=== PATIENT | male | born 1950 | race Caucasian/White ===

== ENCOUNTER 2016-04-10 12:47 | Emergency (ER) | payer OTHER, MEDICARE, BC ==
--- NOTE | 2016-04-10 13:06 | ER Document Report ---
ED Medical Screen (RME) - General Stated Complaint: BLOOD IN STOOL Notes: 66 yo male c/o rectal bleeding since last night. bright red bleeding in stool and from rectum. + hx/o diverticulitis, hemorrhoids, DM and HTN. + increased frequency of stooling today, no abdominal pain. no fever. PCM VIRGILIO Edwards TRAVEL OUTSIDE OF THE [place] IN LAST 30 DAYS: No - Related Data Allergies/Adverse Reactions: No Known Allergies Allergy (Unverified 03/21/14 13:21) Past Medical History - Past Medical History Cardiac Medical History: Reports: Hx Hypercholesterolemia, Hx Hypertension Endocrine Medical History: Reports: Hx Diabetes Mellitus Type 2 - Immunizations Hx Diphtheria, Pertussis, Tetanus Vaccination: Yes Physical Exam - Vital signs Vitals: Temp Pulse Resp BP Pulse Ox 97.3 F 105 H 20 113/68 97 04/10/16 13:00 04/10/16 13:00 04/10/16 13:00 04/10/16 13:00 04/10/16 13:00 Course - Vital Signs Vital signs: Temp Pulse Resp BP Pulse Ox 97.3 F 105 H 20 113/68 97 04/10/16 13:00 04/10/16 13:00 04/10/16 13:00 04/10/16 13:00 04/10/16 13:00
[2016-04-10 13:29] LABS: ABSOLUTE EOSINOPHILS # (AUTO) 0.2 10^3/uL (0.0-0.6); ABSOLUTE LYMPHOCYTES (AUTO) 1.1 10^3/uL (0.5-4.7); ABSOLUTE NEUT (AUTO) 9.5 10^3/uL (1.7-8.2); BASOPHILS % (AUTO) 0.4 % (0-2); EOSINOPHILS % (AUTO) 1.8 % (0-6); HEMATOCRIT 39.3 % (37.9-51.0); HGB HCT DIFFERENCE -0.3; LYMPHOCYTES % (AUTO) 9.5 % (13-45); MEAN CORPUSCULAR HEMOGLOBIN 28.4 pg (27.0-33.4); MEAN CORPUSCULAR VOLUME 86 fl (80-97); MONOCYTES % (AUTO) 8.5 % (3-13); RED BLOOD COUNT 4.56 10^6/uL (4.35-5.55); RED CELL DISTRIBUTION WIDTH 13.6 % (11.5-14.0); SEGMENTED NEUTROPHILS % (AUTO) 79.8 % (42-78); WHITE BLOOD COUNT 11.9 10^3/uL (4.0-10.5)
[2016-04-10 13:43] LABS: ALANINE AMINOTRANSFERASE 26 U/L (21-72); ALKALINE PHOSPHATASE 91 U/L (38-126); ANION GAP 13 (5-19); ASPARTATE AMINO TRANSFERASE 17 U/L (17-59); BILIRUBIN,TOTAL 0.5 mg/dL (0.2-1.3); BLOOD UREA NITROGEN 21 mg/dL (7-20); CALCIUM 9.9 mg/dL (8.4-10.2); CARBON DIOXIDE 26 mmol/L (22-30); CHLORIDE 102 mmol/L (98-107); CREATININE RESULT 1.02 mg/dL (0.52-1.25); GLUCOSE 204 mg/dL (75-110); POTASSIUM 4.5 mmol/L (3.6-5.0); SODIUM 140.7 mmol/L (137-145); TOTAL PROTEIN 6.4 g/dL (6.3-8.2)
--- NOTE | 2016-04-10 17:45 | ER Document Report ---
ED GI Bleed / Rectal Pain - General Chief Complaint: Rectal Bleeding Stated Complaint: BLOOD IN STOOL Notes: Patient is a 66-year-old male who presents emergency Department complaining of lower GI bleeding. Patient states that this started last evening but has gotten significantly worse with course of today. Patient states that today he' s had 8 movements that are mainly been blood clots. Patient denies any abdominal pain or rectal pain. Denies any nausea, vomiting, chest pain. Admits to history of diverticulitis, hemorrhoids, diabetes and hypertension. States he had a colonoscopy about 2 years ago for regular staging that I found benign polyps and evidence of diverticulosis. This was with Dr. Tamara duarte in [place], [place]. Denies any lethargy or weakness. Past surgical history significant for hernia repair, social history significant for rare alcohol use Allergies to codeine PCP is Dr. Purvis in [place] TRAVEL OUTSIDE OF THE [place] IN LAST 30 DAYS: No - Related Data Allergies/Adverse Reactions: No Known Allergies Allergy (Verified 04/10/16 13:02) Past Medical History - Social History Smoking Status: Never Smoker Chew tobacco use (# tins/day): No Frequency of alcohol use: None Drug Abuse: None Family History: CAD Patient has suicidal ideation: No Patient has homicidal ideation: No - Past Medical History Cardiac Medical History: Reports: Hx Hypercholesterolemia, Hx Hypertension Endocrine Medical History: Reports: Hx Diabetes Mellitus Type 2 Renal/ Medical History: Denies: Hx Peritoneal Dialysis - Immunizations Hx Diphtheria, Pertussis, Tetanus Vaccination: Yes Review of Systems - Review of Systems Constitutional: No symptoms reported EENT: No symptoms reported Cardiovascular: No symptoms reported Respiratory: No symptoms reported Gastrointestinal: See HPI Genitourinary: No symptoms reported Male Genitourinary: No symptoms reported Musculoskeletal: No symptoms reported Skin: No symptoms reported Hematologic/Lymphatic: No symptoms reported Neurological/Psychological: No symptoms reported Physical Exam - Vital signs Vitals: Temp Pulse Resp BP Pulse Ox 97.3 F 105 H 20 113/68 97 04/10/16 13:00 04/10/16 13:00 04/10/16 13:00 04/10/16 13:00 04/10/16 13:00 - Notes Notes: PHYSICAL EXAM GENERAL: Alert, interacts well. HEAD: Normocephalic, atraumatic. EYES: Pupils equal, round, and reactive to light. Extraocular movements intact. ENT: Oral mucosa moist, tongue midline. NECK: Full range of motion. Supple. Trachea midline. LUNGS: Clear to auscultation bilaterally, no wheezes, rales, or rhonchi. No respiratory distress. HEART: Regular rate and rhythm. No murmurs, gallops, or rubs. ABDOMEN: Soft, nondistended, nontender. No guarding, rebound, or rigidity.. Bowel sounds present in all 4 quadrants. RECTAL: No evidence of jocelynn blood within the rectal vault, no internal or external hemorrhoids. No palpable mass EXTREMITIES: Moves all 4 extremities spontaneously. No edema, radial and dorsalis pedis pulses 2/4 bilaterally. No cyanosis. NEUROLOGICAL: Alert and oriented x3. Normal speech. PSYCH: Normal affect, normal mood. SKIN: Warm, dry, normal turgor. No rashes or lesions noted. Course - Re-evaluation Re-evalutation: 04/10/16 17:42 Patient is a 66-year-old male who presents with concern for lower GI bleed. He is currently hemodynamically stable, no acute distress and afebrile. CBC does not reveal any evidence of acute blood loss anemia. Patient is tolerating by mouth, alert and oriented. At this time we do not have gastroenterology on- call. We will set patient up with Dr. Barrett and send a consult call to Dr. Quintero. Discussed plan with patient to be evaluated by a director international either tomorrow or Friday inability to return either here or to [place] emergency department if his symptoms persist. Patient and family agreeable with this plan Per [facility] protocol and guidelines, this case was discussed with supervising physician Dr. Benedicto Ivan prior to discharge - Vital Signs Vital signs: Temp Pulse Resp BP Pulse Ox 97.3 F 105 H 20 113/68 97 04/10/16 13:00 04/10/16 13:00 04/10/16 13:00 04/10/16 13:00 04/10/16 13:00 - Laboratory Result Diagrams: 04/10/16 13:10 04/10/16 13:10 Laboratory results interpreted by me: 04/10/16 04/10/16 13:10 13:10 WBC 11.9 H Hgb 13.0 L Seg Neutrophils % 79.8 H Lymphocytes % 9.5 L Absolute Neutrophils 9.5 H BUN 21 H Glucose 204 H Discharge - Discharge Clinical Impression: Lower GI bleed Condition: Good Disposition: HOME, SELF-CARE Instructions: Rectal Bleeding, Unclear Cause ([facility]) Additional Instructions: Please be sure to call Dr. Najera's office as well as Dr. Barrett and Dr. Quintero' s office to establish follow-up to be seen either or Friday of this week. If you're not able to be seen this week please be sure to return to the emergency department either here or [place] if your symptoms persist Referrals: AVERY HOPKINS MD [Primary Care Provider] - Follow up tomorrow ROEL QUINTERO MD [ACTIVE STAFF] - Follow up tomorrow
[2016-04-10 17:59] VITALS: BP 113/61
== END 2016-04-10 17:57 | disposition home or self-care (01) ==
LOC: ER 12:47
DX: K92.2 Gastrointestinal hemorrhage, unspecified (principal); E78.00 Pure hypercholesterolemia, unspecified; I10 Essential (primary) hypertension; E11.9 Type 2 diabetes mellitus without complications; Z88.6 Allergy status to analgesic agent
CPT/HCPCS: 36415; 80053; 82272; 85025; 99283

== ENCOUNTER → 2016-04-25 | Outpatient (CLI) | payer MEDICARE, BC | LOC: RAD 08:51 | PROVIDERS: ATTEND Internal Medicine | DX: K92.2 Gastrointestinal hemorrhage, unspecified (principal) | CPT/HCPCS: 74250 ==

== ENCOUNTER 2016-08-22 10:41 | Day surgery (SDC) | payer MEDICARE, BC ==
[~2016-08-22 10:41] MED LIST: KETOROLAC TROMETHAMINE 0.45% 4 DROP/0.4 ML DROPERETTE OD PRN; MIDAZOLAM 2 MG/2 ML INJ ONE
[2016-08-22] MEDS ORDERED: PHENYLEPHRINE/KETOROLAC 1%-0.3% 4 ML VIAL ONE (10:55)
[2016-08-22] MEDS ORDERED: LIDOCAINE 1% INJ-PF (10 MG/ML) 30 ML SDV ONE (10:55)
[2016-08-22] MEDS ORDERED: CHONDR SU A NA/HYALUR INTRAOC KIT (SURGICARE) ONE (10:55)
[2016-08-22] MEDS ORDERED: KETOROLAC TROMETHAMINE 0.45% 4 DROP/0.4 ML DROPERETTE ONE (11:01)
[2016-08-22] MEDS ORDERED: TETRACAINE HCL 0.5% OPH SOLN 2 ML ONE (11:02)
[2016-08-22] MEDS: TROPICAMIDE 1% OPH SOLN 3 ML OD PRN ×3 (11:05→11:25)
[2016-08-22] MEDS: CYCLOPENTOLATE 0.2%/PHENYLEPHRINE 1% OPH SOLN 2 ML OD PRN ×3 (11:05→11:25)
[2016-08-22] MEDS: BESIFLOXACIN HCL 0.6% OPH SUSP 5 ML BOTTLE OD PRN ×3 (11:06→12:07)
[2016-08-22] MEDS: TETRACAINE HCL 0.5% OPH SOLN 2 ML OD PRN ×3 (11:07→11:44)
--- NOTE | 2016-08-22 12:53 | [facility] OPERATIVE REPORT E ---
[facility] Operative Report NAME: NETTA PATINO AGE: 66Y DATE OF SURGERY: 08/22/2016 ROOM: PREOPERATIVE DIAGNOSIS: CATARACT, RIGHT EYE. POSTOPERATIVE DIAGNOSIS: CATARACT, RIGHT EYE. OPERATION: Cataract extraction with intraocular lens implant of the right eye. SURGEON: PATRICK ANTONIO M.D. ANESTHESIA: Topical. PROCEDURE: After obtaining appropriate consent, the patient's right eye was prepped and draped in sterile fashion as well as the surgeon in a sterile manner and cataract surgery was started. First a paracentesis blade was used to make a small side-port incision. Viscoelastic was used to inflate the anterior chamber. Next a 2.4 mm incision was made with the paracentesis blade. A continuous capsulorrhexis incision was made using a cystotome and Utrata forceps. Following this hydrodissection was carried out to make the lens fully loose and mobile and it was rotated 90 degrees. Following this, a akboro-mik-vlbhhml technique was used to phacoemulsify the lens. The remaining cortex was removed with irrigation/aspiration. Provisc was instilled into the capsular bag to inflate the bag. A SN60WF, 15.5 diopter lens was placed. The remaining viscoelastic material was removed with irrigation/aspiration. Following this, a 10-0 nylon suture was used to close the incision and it was found to be watertight. Vigamox was instilled in the eye and a protective shield was placed over the eye. The patient returned to the postoperative recovery in stable condition. DICTATING PHYSICIAN: PATRICK ANTONIO M.D. [id number] PHY#: [id number] ID: [id number] JOB#: [id number] ACCT: [id number] cc:PATRICK ANTONIO M.D. > MTDZandra
--- NOTE | 2016-08-22 12:54 | [facility] DISCHARGE SUMMARY E ---
[facility] Discharge Summary NAME: NETTA PATINO AGE: 66Y ADMITTED: 08/22/2016 DISCHARGED: 08/22/2016 HOSPITAL COURSE: This is a 66-year-old male who underwent cataract extraction of the right eye, diagnosed as cataract right eye. He underwent surgery because he avoids driving at night secondary to having glare from headlights. He should be on a regular diet, no bending at his waist, no heavy lifting. He should use his Besivance, Ilevro, and Durezol at 3 p.m. and 8 p.m. and sleep with a rigid shield, and I will see him for his 1 day postoperative tomorrow. DICTATING PHYSICIAN: PATRICK ANTONIO M.D. [id number] PHY#: [id number] ID: [id number] JOB#: [id number] ACCT: [id number] cc:PATRICK ANTONIO M.D. >
== END 2016-08-22 12:48 | disposition home or self-care (01) ==
LOC: SC 10:41
PROVIDERS: ATTEND Internal Medicine
PROC: 08RJ3JZ Replacement of Right Lens with Synthetic Substitute, Percutaneous Approach (ICD-10-PCS; principal; 2016-08-22 12:00)
DX: H25.813 Combined forms of age-related cataract, bilateral (principal); H57.03 Miosis; H35.371 Puckering of macula, right eye; H04.123 Dry eye syndrome of bilateral lacrimal glands; E11.9 Type 2 diabetes mellitus without complications; I10 Essential (primary) hypertension; K21.9 Gastro-esophageal reflux disease without esophagitis; I49.9 Cardiac arrhythmia, unspecified; G62.9 Polyneuropathy, unspecified; E78.00 Pure hypercholesterolemia, unspecified; Z87.891 Personal history of nicotine dependence; Z88.5 Allergy status to narcotic agent; Z79.82 Long term (current) use of aspirin; Z79.899 Other long term (current) drug therapy; Z79.84 Long term (current) use of oral hypoglycemic drugs
CPT/HCPCS: 66984; 82962; V2632; J2250; J3490 ×2; A9270; C9447; 142

== ENCOUNTER 2017-07-05 22:56 | Emergency (ER) | payer MEDICARE, BC ==
[2017-07-05] MEDS ORDERED: TRANEXAMIC ACID INJ/PF 1,000 MG/10 ML SDV IV ONE (23:02)
[2017-07-05] MEDS ORDERED: NORMAL SALINE 500 ML IV ONE (23:03)
--- NOTE | 2017-07-05 23:07 | ER Document Report ---
ED General - General Chief Complaint: Passed Out Prior to Arrival Stated Complaint: SYCOPE Time Seen by Provider: 07/05/17 23:02 Notes: Patient is a 67-year-old male who presents with complaint of syncopal episode on the toilet. This occurred when he started having blood coming from his rectum. He initially said he did not have chest pain. His showed up and said that he was having some sharp shooting chest pain. Patient does admit that he had little bit of sharp shooting chest pain but says has since resolved. Called the ambulance. When the ambulance set him up in a syncopal episode. On the way here he passed several episodes of blood clots from his rectum. He does have a history of diverticulitis. No recent abdominal surgeries. Last colonoscopy was just over a year ago. No fevers. Some nausea. No vomiting of blood. Patient currently says he feels a bit better after receiving 500 mL's of normal saline from the paramedics. He also received 8 mg of Zofran. He is not on any blood thinners. TRAVEL OUTSIDE OF THE U[place] IN LAST 30 DAYS: No - Related Data Allergies/Adverse Reactions: codeine Adverse Reaction (Verified 08/22/16 11:41) Nausea Past Medical History - Social History Smoking Status: Never Smoker Frequency of alcohol use: None Drug Abuse: None Family History: CAD - Past Medical History Cardiac Medical History: Reports: Hx Hypercholesterolemia, Hx Hypertension Denies: Hx Heart Attack Pulmonary Medical History: Denies: Hx Asthma Neurological Medical History: Denies: Hx Cerebrovascular Accident, Hx Seizures Endocrine Medical History: Reports: Hx Diabetes Mellitus Type 2 Renal/ Medical History: Denies: Hx Peritoneal Dialysis GI Medical History: Reports: Hx Hiatal Hernia, Hx Ulcer. Denies: Hx Hepatitis Infectious Medical History: Denies: Hx Hepatitis Past Surgical History: Denies: Hx Open Heart Surgery, Hx Pacemaker - Immunizations Hx Diphtheria, Pertussis, Tetanus Vaccination: Yes Review of Systems - Review of Systems Notes: My Normal Review Basic REVIEW OF SYSTEMS: CONSTITUTIONAL : Denies fever, chills, or sweats. Denies recent illness. EENT: Denies eye, ear, throat, or mouth pain or symptoms. Denies nasal or sinus congestion. CARDIOVASCULAR: Some chest pain which has since resolved. RESPIRATORY: Denies cough, cold, or chest congestion. Denies shortness of breath, difficulty breathing, or wheezing. GASTROINTESTINAL: Suprapubic and left lower quadrant abdominal pain.. Denies nausea, vomiting, or diarrhea. Rectal bleeding GENITOURINARY: Denies difficulty urinating, painful urination, burning, frequency, or blood in urine. MUSCULOSKELETAL: Denies neck or back pain or joint pain or swelling. SKIN: Denies rash or skin lesions. NEUROLOGICAL: Syncope. denies headache. Denies weakness or paralysis or loss of use of either side. Denies problems with gait or speech. Denies sensory or motor loss. ALL OTHER SYSTEMS REVIEWED AND NEGATIVE. Physical Exam - Vital signs Vitals: Temp 97.9 F 07/05/17 22:59 - Notes Notes: General Appearance: Well nourished, alert, cooperative, no acute distress, mild obvious discomfort. Mildly diaphoretic Vitals: reviewed, See vital signs table. Head: no swelling or tenderness to the head Eyes: PERRL, EOMI, Conjuctiva clear Mouth: No decreasd moisture Neck: Supple, no neck tenderness, No thyromegaly Lungs: No wheezing, No rales, No rhonci, No accessory muscle use, good air exchange bilaterally. Heart: Normal rate, Regular rythm, No murmur, no rub Abdomen: Normal BS, soft, No rigidity, mild to moderate left lower quadrant abdominal tenderness to palpation, No guarding, no rebound, Extremities: strength 5/5 in all extremities, good pulses in all extremities, no swelling or tenderness in the extremities, no edema. Skin: warm, dry, appropriate color, no rash Neuro: speech clear, oriented x 3, normal affect, responds appropriately to questions. Course - Re-evaluation Re-evalutation: 07/06/17 02:14 I did evaluate the patient. He does not have any active bleeding ongoing at this time from the rectal area. Still has the same dried blood over the rectal area with no new gross blood. Patient prefers to at least try to stay on so if they be willing to accept them even though we do not have GI. I did speak with the hospitalist, Dr. Martin, who he recommends the patient be transferred because we do not have GI coverage in case the patient does have recurrent bleeding. I did explain this to the patient he is agreeable to be transferred. Patient's primary care doctor is Low Rodriguez and his GI physician is Bety Mcdonald. Both of them are at [facility] and therefore I have called [facility] and spoke with Dr. Grey who agrees except the patient for transfer. I have ordered repeat CBC to see where his hemoglobin has trended 2. That is currently pending. Dictation of this chart was performed using voice recognition software; therefore, there may be some unintended grammatical errors. 07/06/17 06:36 Time of transfer patient did not have any further bleeding. His vital signs were stable. He was medically stable for transport. Patient was transported to [facility] where they have GI coverage. Dictation of this chart was performed using voice recognition software; therefore, there may be some unintended grammatical errors. - Vital Signs Vital signs: Temp Pulse Resp BP Pulse Ox 97.9 F 87 19 114/69 93 07/06/17 03:33 07/06/17 02:07 07/06/17 03:32 07/06/17 03:32 07/06/17 03:31 - Laboratory Result Diagrams: 07/06/17 02:07 07/05/17 23:00 Laboratory results interpreted by me: 07/05/17 07/05/17 07/06/17 23:00 23:00 02:07 WBC 11.1 H RBC 3.21 L 3.23 L Hgb 9.6 L 9.4 L Hct 28.5 L 28.3 L RDW 14.2 H Seg Neutrophils % 88.1 H Lymphocytes % 5.9 L Absolute Neutrophils 9.8 H BUN 30 H Glucose 204 H Total Bilirubin 0.1 L AST 11 L Total Protein 5.1 L Albumin 2.8 L - EKG Interpretation by Me Additional EKG results interpreted by me: 07/05/17 23:16 EKG is reviewed and interpreted by me. EKG shows sinus rhythm with a rate of [address] segment elevation or depression. No ischemic appearing T-wave inversions. No acute changes in comparison to his old EKG from July 24, 2015. VT interval, QRS duration, QTc intervals are within normal range. Discharge - Discharge Clinical Impression: Rectal bleeding Syncope Qualifiers: Syncope type: unspecified Qualified Code(s): R55 - Syncope and collapse Anemia Qualifiers: Anemia type: unspecified type Qualified Code(s): D64.9 - Anemia, unspecified Condition: Stable Disposition: [facility]
[2017-07-05 23:15] LABS: ABSOLUTE BASOPHILS # (AUTO) 0.1 10^3/uL (0.0-0.2); ABSOLUTE EOSINOPHILS # (AUTO) 0.3 10^3/uL (0.0-0.6); ABSOLUTE LYMPHOCYTES (AUTO) 1.8 10^3/uL (0.5-4.7); BASOPHILS % (AUTO) 0.8 % (0-2); EOSINOPHILS % (AUTO) 2.5 % (0-6); HEMATOCRIT 28.5 % (37.9-51.0); HEMOGLOBIN 9.6 g/dL (13.5-17.0); LYMPHOCYTES % (AUTO) 17.8 % (13-45); MEAN CORPUSCULAR HEMOGLOBIN 29.9 pg (27.0-33.4); MEAN CORPUSCULAR HGB CONC 33.7 g/dL (32.0-36.0); MEAN CORPUSCULAR VOLUME 89 fl (80-97); MONOCYTES % (AUTO) 9.6 % (3-13); PLATELET COUNT 262 10^3/uL (150-450); RED BLOOD COUNT 3.21 10^6/uL (4.35-5.55); RED CELL DISTRIBUTION WIDTH 13.8 % (11.5-14.0); SEGMENTED NEUTROPHILS % (AUTO) 69.3 % (42-78); TOTAL CELLS COUNTED % (AUTO) 100 %; WHITE BLOOD COUNT 10.1 10^3/uL (4.0-10.5)
[2017-07-05 23:23] LABS: INTERNATIONAL RATION (INR) 0.92; PROTHROMBIN TIME 12.8 SEC (11.4-15.4)
[2017-07-05 23:24] LABS: PARTIAL THROMBOPLASTIN TIME 30.5 SEC (23.5-35.8)
[2017-07-05] MEDS ORDERED: PROMETHAZINE HCL INJ 25 MG/1 ML VIAL IM ONE (23:39)
[2017-07-05] MEDS ORDERED: PROMETHAZINE HCL INJ 25 MG/1 ML VIAL ONE (23:40)
[2017-07-05 23:56] LABS: ALANINE AMINOTRANSFERASE 24 U/L (21-72); ALBUMIN 2.8 g/dL (3.5-5.0); ALKALINE PHOSPHATASE 71 U/L (38-126); ANION GAP 5 (5-19); ASPARTATE AMINO TRANSFERASE 11 U/L (17-59); BLOOD UREA NITROGEN 30 mg/dL (7-20); CALCIUM 8.4 mg/dL (8.4-10.2); CARBON DIOXIDE 28 mmol/L (22-30); CHLORIDE 107 mmol/L (98-107); GLUCOSE 204 mg/dL (75-110); POTASSIUM 3.9 mmol/L (3.6-5.0); TOTAL PROTEIN 5.1 g/dL (6.3-8.2)
[2017-07-06] LABS: BILIRUBIN,TOTAL 0.1 mg/dL (0.2-1.3)
[2017-07-06 00:01] LABS: BILIRUBIN,DIRECT 0.1 mg/dL (0.0-0.4)
--- NOTE | 2017-07-06 00:18 | RADIOLOGY REPORT (SQ) ---
EXAM DESCRIPTION: CLINICAL HISTORY: chest pain COMPARISON: 07/23/2015 FINDINGS: Single view of the chest is submitted. 5 mm nodule in the right lateral lung is unchanged. Cardiac silhouette is normal. No focal parenchymal or pleural disease. No acute bony abnormality. There is no significant pulmonary vascular engorgement. IMPRESSION: No evidence of acute cardiopulmonary disease.
--- NOTE | 2017-07-06 01:20 | RADIOLOGY REPORT (SQ) ---
EXAM DESCRIPTION: CT ABDOMEN PELVIS WITH IV CONTRAST CLINICAL HISTORY: 67 years Male, rectal bleeding, abdominal pain Comparison: None. Technique: IV contrast. Coronal and sagittal reformat. This exam was performed according to our departmental dose-optimization program, which includes automated exposure control, adjustment of the mA and/or kV according to patient size and/or use of iterative reconstruction technique.[facility]: Dose Right [facility]: CareDose [facility]: Dose Right [facility]: Teradose 4D [facility]: [employer] LIMITATIONS: None. Findings: Mild bowel wall thickening with mild fat inflammation of 3 cm ileal segment and the right paracentral abdomen, image 33 of series [address] Normal CT appearance of the rectum and perirectal space. Mild low-attenuation bowel wall thickening of the right colon suggest prior infectious or inflammatory insult. Mild perinephric fat stranding. Likely benign bilateral small renal cysts. Normal appendix. Mild disc desiccation. Inferior thorax, liver, gallbladder, pancreas, spleen, adrenals, renal system, pelvic organs, lymphatics, vasculature, and musculoskeleton appear otherwise unremarkable. IMPRESSION: Mild focal ileitis. Differential includes infectious, inflammatory, and neoplastic etiologies.
[2017-07-06 02:16] LABS: ABSOLUTE LYMPHOCYTES (AUTO) 0.7 10^3/uL (0.5-4.7); ABSOLUTE MONOCYTES (AUTO) 0.6 10^3/uL (0.1-1.4); ABSOLUTE NEUT (AUTO) 9.8 10^3/uL (1.7-8.2); BASOPHILS % (AUTO) 0.2 % (0-2); EOSINOPHILS % (AUTO) 0.3 % (0-6); HEMATOCRIT 28.3 % (37.9-51.0); HEMOGLOBIN 9.4 g/dL (13.5-17.0); LYMPHOCYTES % (AUTO) 5.9 % (13-45); MEAN CORPUSCULAR HEMOGLOBIN 29.2 pg (27.0-33.4); MEAN CORPUSCULAR HGB CONC 33.3 g/dL (32.0-36.0); MEAN CORPUSCULAR VOLUME 88 fl (80-97); MONOCYTES % (AUTO) 5.5 % (3-13); PLATELET COUNT 233 10^3/uL (150-450); RED BLOOD COUNT 3.23 10^6/uL (4.35-5.55); RED CELL DISTRIBUTION WIDTH 14.2 % (11.5-14.0); SEGMENTED NEUTROPHILS % (AUTO) 88.1 % (42-78); TOTAL CELLS COUNTED % (AUTO) 100 %; WHITE BLOOD COUNT 11.1 10^3/uL (4.0-10.5)
[2017-07-06 03:33] VITALS: BP 114/69
--- NOTE | 2017-07-06 08:42 | EKG REPORT ---
SEVERITY:- OTHERWISE NORMAL ECG - SINUS RHYTHM BORDERLINE RIGHT AXIS DEVIATION NONSPECIFIC ST-T CHANGES LATERAL LEADS, UNCHANGED FROM 07/24/15 EKG : Confirmed by: Johnnie Olsen MD 06-Jul-2017 08:41:58
== END 2017-07-06 03:43 | disposition short-term general hospital (02) ==
LOC: ER 22:56
DX: K62.5 Hemorrhage of anus and rectum (principal); R55 Syncope and collapse; D64.9 Anemia, unspecified; R11.0 Nausea; R10.32 Left lower quadrant pain; I10 Essential (primary) hypertension; R07.9 Chest pain, unspecified; E11.9 Type 2 diabetes mellitus without complications; Z87.19 Personal history of other diseases of the digestive system
CPT/HCPCS: 93005; 99285; 96372; 96365; 86900; 86901; 36415; 86850; 85025; 85610; 85730; 80053; 84484; 71045; 74178; 93010; J2550; J7040; J3490

== ENCOUNTER → 2017-08-12 | Outpatient (CLI) | payer MEDICARE, BC ==
--- NOTE | 2017-08-12 15:59 | RADIOLOGY REPORT (SQ) ---
EXAM DESCRIPTION: MRI HEAD COMBO COMPLETED DATE/TIME: 08/12/2017 1:21 pm REASON FOR STUDY: DIPLOPIA H53.2 DIPLOPIA COMPARISON: None. TECHNIQUE: Multiplanar imaging includes noncontrasted T1, T2, FLAIR, diffusion with ADC map and post gadolinium contrast T1 sequences. Images stored on PACS. Additional thin section axial and coronal T2 fat sat, T1 precontrast, T1 post contrasted images throu gh the orbits were obtained. CONTRAST TYPE AND DOSE: 15 mL Prohance. RENAL FUNCTION: GFR > 60. LIMITATIONS: None. FINDINGS: ANATOMY: No developmental anomalies. Normal vascular flow voids. Pituitary fossa normal. Suprasellar cistern, optic chiasm unremarkable CSF SPACES: Normal in size and contour. No hemorrhage. CEREBRUM: Sulci and gyri normal in size and contour. Single focus of increased flair/ t2 white matte r signal along the right posterior temporal lobe axial image 16 likely a tiny focus of small vessel i schemic change, chronic. No evidence of hemorrhage, mass, or extraaxial fluid collection. No abnorma l enhancement post contrast. POSTERIOR FOSSA: No signal alteration. No hemorrhage. No edema, masses, or mass effect. Internal silvina tory canals, cerebellopontine angles, mastoids normal. No enhancing lesions. No abnormal enhancement post contrast. DIFFUSION IMAGING: Negative for acute or subacute infarction. ORBITS: Post right cataract surgery. Globes are otherwise unremarkable. Normal optic nerves. No in tra or extraconal orbital masses or abnormal enhancement. Normal extraocular muscles. Normal lacrim al glands. Optic chiasm, optic radiation unremarkable. PARANASAL SINUSES: No fluid levels. Mucosa normal. OTHER: No other significant finding. IMPRESSION: ESSENTIALLY NORMAL MRI OF THE BRAIN AND ORBITS WITHOUT AND WITH INTRAVENOUS GADOLINIUM C ONTRAST. EVIDENCE OF ACUTE STROKE: NO. TECHNICAL DOCUMENTATION: JOB ID: [id number] [employer]- All Rights Reserved Reading location - IP/workstation name: [email or web address]
== END ==
LOC: RAD 12:03
PROVIDERS: ATTEND Internal Medicine
DX: H53.2 Diplopia (principal)
CPT/HCPCS: 82565; 70553; A9576

== ENCOUNTER 2019-01-25 17:51 | Emergency (ER) | payer MEDICARE, BC ==
[2019-01-25] MEDS ORDERED: ONDANSETRON 4 MG TAB.RAPDIS PO ONE (20:23)
[2019-01-25] MEDS ORDERED: OXYCODONE-ACETAMINOPHEN 5-325 MG TABLET PO ONE (20:23)
--- NOTE | 2019-01-25 20:26 | ER Document Report ---
ED Medical Screen (RME) - General Chief Complaint: Cat Bite Stated Complaint: ANIMAL BITE Time Seen by Provider: 01/25/19 20:19 Primary Care Provider: PATRICK ANTONIO MD [Primary Care Provider] - Follow up as needed Mode of Arrival: Ambulatory Information source: Patient Notes: This 68-year-old diabetic presents to the emergency department with a cat bite to his right hand. Reports it was an old cat and the cat was frightened. He is pretty sure the shots are up-to-date. Reports he went to see his primary care provider today because his hand is red hurts warm and red streaks going up his forearm. He denies fever vomiting diarrhea. Reports his primary care provider told him he had a high white count and he needed IV antibiotics. I have greeted and performed a rapid initial assessment of this patient. A comprehensive ED assessment and evaluation of the patient, analysis of test results and completion of the medical decision making process will be conducted by additional ED providers. Dictation of this chart was performed using voice recognition software; therefore, there may be some unintended grammatical errors. TRAVEL OUTSIDE OF THE [place] IN LAST 30 DAYS: No - Related Data Allergies/Adverse Reactions: codeine Adverse Reaction (Verified 08/22/16 11:41) Nausea Past Medical History - Past Medical History Cardiac Medical History: Reports: Hx Hypercholesterolemia, Hx Hypertension Denies: Hx Heart Attack Pulmonary Medical History: Denies: Hx Asthma Neurological Medical History: Denies: Hx Cerebrovascular Accident, Hx Seizures Endocrine Medical History: Reports: Hx Diabetes Mellitus Type 2 Renal/ Medical History: Denies: Hx Peritoneal Dialysis GI Medical History: Reports: Hx Hiatal Hernia, Hx Ulcer. Denies: Hx Hepatitis Infectious Medical History: Denies: Hx Hepatitis Past Surgical History: Denies: Hx Open Heart Surgery, Hx Pacemaker - Immunizations Hx Diphtheria, Pertussis, Tetanus Vaccination: Yes Physical Exam - Vital signs Vitals: Temp Pulse Resp BP Pulse Ox 98.4 F 85 16 125/61 94 01/25/19 18:38 01/25/19 18:38 01/25/19 18:38 01/25/19 18:38 01/25/19 18:38 Course - Vital Signs Vital signs: Temp Pulse Resp BP Pulse Ox 98.4 F 85 16 125/61 94 01/25/19 20:20 01/25/19 18:38 01/25/19 20:20 01/25/19 18:38 01/25/19 20:20 Doctor's Discharge - Discharge Referrals: PATRICK ANTONOI MD [Primary Care Provider] - Follow up as needed
--- NOTE | 2019-01-25 21:03 | RADIOLOGY REPORT (SQ) ---
EXAM DESCRIPTION: XR HAND 3 OR MORE VIEWS COMPLETED DATE/TME: 01/25/2019 20:24 CLINICAL HISTORY: 68 years, Male, cat bite COMPARISON: None. NUMBER OF VIEWS: Three TECHNIQUE: Frontal, oblique, and lateral radiographs were obtained LIMITATIONS: None. FINDINGS: Multifocal degenerative changes are evident about the hand/wrist, particularly about the first CMC joint as well as the first through third MCP joints. Remaining visualized osseous structures appear normal without acute fracture or dislocation. No significant soft tissue swelling. No retained radiopaque foreign body. IMPRESSION: Multifocal degenerative changes, as above. No underlying acute osseous anomaly. copyright 2010 [employer]- All Rights Reserved
[2019-01-25 21:08] LABS: ABSOLUTE BASOPHILS # (AUTO) 0.1 10^3/uL (0.0-0.2); ABSOLUTE EOSINOPHILS # (AUTO) 0.1 10^3/uL (0.0-0.6); ABSOLUTE LYMPHOCYTES (AUTO) 1.1 10^3/uL (0.5-4.7); ABSOLUTE NEUT (AUTO) 9.8 10^3/uL (1.7-8.2); BASOPHILS % (AUTO) 0.5 % (0-2); EOSINOPHILS % (AUTO) 1.2 % (0-6); HEMATOCRIT 42.8 % (37.9-51.0); HEMOGLOBIN 14.1 g/dL (13.5-17.0); LYMPHOCYTES % (AUTO) 9.4 % (13-45); MEAN CORPUSCULAR HEMOGLOBIN 28.3 pg (27.0-33.4); MEAN CORPUSCULAR HGB CONC 32.9 g/dL (32.0-36.0); MEAN CORPUSCULAR VOLUME 86 fl (80-97); MONOCYTES % (AUTO) 8.3 % (3-13); PLATELET COUNT 258 10^3/uL (150-450); RED BLOOD COUNT 4.97 10^6/uL (4.35-5.55); RED CELL DISTRIBUTION WIDTH 14.6 % (11.5-14.0); SEGMENTED NEUTROPHILS % (AUTO) 80.6 % (42-78); TOTAL CELLS COUNTED % (AUTO) 100 %; WHITE BLOOD COUNT 12.1 10^3/uL (4.0-10.5)
[2019-01-25 21:27] LABS: ALBUMIN 4.2 g/dL (3.5-5.0); ALKALINE PHOSPHATASE 113 U/L (38-126); ANION GAP 14 (5-19); ASPARTATE AMINO TRANSFERASE 16 U/L (17-59); BILIRUBIN,DIRECT 0.2 mg/dL (0.0-0.4); BILIRUBIN,TOTAL 0.4 mg/dL (0.2-1.3); BLOOD UREA NITROGEN 20 mg/dL (7-20); CALCIUM 9.8 mg/dL (8.4-10.2); CARBON DIOXIDE 26 mmol/L (22-30); CHLORIDE 102 mmol/L (98-107); GLUCOSE 215 mg/dL (75-110); TOTAL PROTEIN 6.9 g/dL (6.3-8.2)
[2019-01-26] MEDS ORDERED: AMPICILLIN SOD/SULBACTAM 3 GM VIAL IV ONE (03:57)
--- NOTE | 2019-01-26 04:06 | ER Document Report ---
ED General - General Chief Complaint: Cat Bite Stated Complaint: ANIMAL BITE Time Seen by Provider: 01/25/19 20:19 Primary Care Provider: PATRICK ANTONIO MD [Primary Care Provider] - Follow up as needed Mode of Arrival: Ambulatory TRAVEL OUTSIDE OF THE [place] IN LAST 30 DAYS: No - HPI Notes: Patient is a 68-year-old male with a history of hypertension and diabetes who presents complaining of cat bite to the right hand Friday evening. Patient states that he woke up the next morning and had some swelling to the hand and a slight red line going up his forearm posteriorly. Patient was seen by his family doctor and sent him here for evaluation. He is otherwise feeling well. He is able to eat and drink without difficulty. He is urinating normally. He has not taken any medicines as of yet including antibiotics. Patient states he does have some stiffness to his hand, but is able to move his fingers and thumb without difficulty otherwise. Patient states that he did get a tetanus shot at his family doctor's office yesterday and the cat is a family cat with up-to-date immunizations. Denies any headache, fever, neck pain, URI, sore throat, chest pain, palpitations, syncope, cough, shortness of breath, wheeze, dyspnea, abdominal pain, nausea/vomiting/diarrhea, urinary retention, dysuria, hematuria, loss of control of bowel or bladder, numbness/tingling, muscle paralysis/weakness, or rash. - Related Data Allergies/Adverse Reactions: codeine Adverse Reaction (Verified 08/22/16 11:41) Nausea Past Medical History - General Information source: Patient - Social History Smoking Status: Never Smoker Family History: CAD Patient has suicidal ideation: No Patient has homicidal ideation: No - Past Medical History Cardiac Medical History: Reports: Hx Hypercholesterolemia, Hx Hypertension Denies: Hx Heart Attack Pulmonary Medical History: Denies: Hx Asthma Neurological Medical History: Denies: Hx Cerebrovascular Accident, Hx Seizures Endocrine Medical History: Reports: Hx Diabetes Mellitus Type 2 Renal/ Medical History: Denies: Hx Peritoneal Dialysis GI Medical History: Reports: Hx Hiatal Hernia, Hx Ulcer. Denies: Hx Hepatitis Infectious Medical History: Denies: Hx Hepatitis Past Surgical History: Denies: Hx Open Heart Surgery, Hx Pacemaker - Immunizations Hx Diphtheria, Pertussis, Tetanus Vaccination: Yes Review of Systems - Review of Systems -: Yes All other systems reviewed and negative Physical Exam - Vital signs Vitals: Temp Pulse Resp BP Pulse Ox 98.4 F 85 16 125/61 94 01/25/19 18:38 01/25/19 18:38 01/25/19 18:38 01/25/19 18:38 01/25/19 18:38 - Notes Notes: PHYSICAL EXAMINATION: GENERAL: Well-appearing, well-nourished and in no acute distress. HEAD: Atraumatic, normocephalic. NECK: Normal range of motion, supple without lymphadenopathy. No midline tenderness. LUNGS: Breath sounds clear to auscultation bilaterally and equal. No wheezes rales or rhonchi. HEART: Regular rate and rhythm without murmurs, rubs, gallops. Musculoskeletal: Rt hand/wrist: + mild erythema and swelling rt thumb area. + mild streak noted posterior forearm to antecubital area. + mild tenderness rt thumb area. N/V intact distal. FROM to passive/active at the finger/wrist. 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 No scaphoid tenderness. No other bony tenderness. Gamekeeper negative. No bony tenderness otherwise. Extremities: No cyanosis, clubbing, or edema b/l. Peripheral pulses 2+. Capillary refill less than 3 seconds. NEUROLOGICAL: Normal speech, normal gait. Normal sensory, motor exams otherwise unremarkable PSYCH: Normal mood, normal affect. SKIN: see above. No rash Course - Re-evaluation Re-evalutation: 01/26/19 Patient is an afebrile, well-hydrated, 68-year-old male who presents to the ED with cat bite rt hand with cellulitis and mild streak proximally. Vitals are a cceptable without any significant tachycardia, tachypnea, or hypoxia. PE is otherwise unremarkable for any neurovascular compromise, obvious tendon/ligament rupture, obvious fracture/dislocation, septic joint, flexortenosynovitis. X-ray was acceptable. Patient is nontoxic-appearing. No other labs or imaging warranted at this time based on H&P. Pt given Unasyn IV here in the ED. Pt would like to try outpatient therapy with augmentin. Pt otherwise appears competent to monitor at home. Wound instructions reviewed. Strict return precautions reviewed with close monitoring. Conservative measures otherwise for symptoms. He has a f/u with his PCM scheduled in 2 days. Consider consult ort hopedics. Return to the ED with any worsening/concerning symptoms otherwise as reviewed in discharge. Patient is in agreement. - Vital Signs Vital signs: Temp Pulse Resp BP Pulse Ox 98.6 F 79 18 134/69 H 96 01/26/19 01:31 01/26/19 01:31 01/26/19 01:31 01/26/19 01:31 01/26/19 01:31 - Laboratory Result Diagrams: 01/25/19 20:49 01/25/19 20:49 Laboratory results interpreted by me: 01/25/19 01/25/19 20:49 20:49 WBC 12.1 H RDW 14.6 H Lymph % (Auto) 9.4 L Absolute Neuts (auto) 9.8 H Seg Neutrophils % 80.6 H Glucose 215 H AST 16 L Discharge - Discharge Clinical Impression: Cat bite of hand Qualifiers: Encounter type: initial encounter Laterality: right Qualified Code(s): S61.451A - Open bite of right hand, initial encounter; W55.01XA - Bitten by cat, initial encounter Condition: Stable Disposition: HOME, SELF-CARE Additional Instructions: Keep the skin clean Wash with soap and water Tylenol/ibuprofen if needed Triple antibiotic ointment daily Epsom salt soaks Take medication as directed Monitor for any worsening symptoms Recheck with your PCM in 2 days as scheduled Consider consult with Orthopedics for ongoing/worsening symptoms Return to the ED with any worsening symptoms and/or development of fever, headache, chest pain, palpitations, syncope, shortness of breath, trouble breathing, abdominal pain, n/v/d, abscess, purulent discharge, red streaks, worsening swelling, or other worsening symptoms that are concerning to you. Prescriptions: Amox Tr/Potassium Clavulanate [Augmentin 875-125 Tablet] 1 tab PO BID 10 Days #20 tablet Forms: Elevated Blood Pressure Referrals: [facility] [Provider Group] - Follow up as needed
[2019-01-26 06:16] VITALS: BP 129/68
== END 2019-01-26 06:00 | disposition home or self-care (01) ==
LOC: ER 17:51
DX: S61.451A Open bite of right hand, initial encounter (principal); L03.113 Cellulitis of right upper limb; W55.01XA Bitten by cat, initial encounter; Y93.K9 Activity, other involving animal care; I10 Essential (primary) hypertension; E11.9 Type 2 diabetes mellitus without complications
CPT/HCPCS: 36415; 85025; 80053; 73130; A9270 ×2; J0295; 96365; 99283; S0119